=== PATIENT | female | born 1950 | race Caucasian/White ===

== ENCOUNTER → 2017-08-25 | Outpatient (CLI) | payer MEDICARE, BC ==
[2012-08-11 20:00] VITALS: BP 112/58
[~2017-08-25] MED LIST: NO HOME MEDICATIONS
== END ==
LOC: RAD 10:36
DX: Z12.31 Encounter for screening mammogram for malignant neoplasm of breast (principal)

== ENCOUNTER → 2017-08-28 | Outpatient (CLI) | payer MEDICARE, BC ==
[2012-08-11 20:00] VITALS: BP 112/58
[2017-08-28 08:08] LABS: HEMATOCRIT 38.5 % (37.0-47.0); HEMOGLOBIN 12.7 g/dL (12.5-16.0); MEAN CELL VOLUME 95 fl (78-100); MEAN CORPUSCULAR HEMOGLOBIN 31 pg (27-31); MEAN CORPUSCULAR HGB CONC 33 g/dL (33-37); MEAN PLATELET VOLUME 8.7 fl (7.4-10.4); PLATELET COUNT 281 K/mm3 (130-400); RED BLOOD COUNT 4.07 M/mm3 (4.10-5.30); RED CELL DISTRIBUTION WIDTH 12.7 % (11.5-14.5); WHITE BLOOD COUNT 3.5 K/mm3 (4.8-10.8)
[2017-08-28 08:15] LABS: ALBUMIN 3.9 g/dL (3.5-5.0); BUN/CREATININE RATIO 20.9 (6.0-26.0); CALCIUM 9.5 mg/dL (8.4-10.2); POTASSIUM 4.1 mmol/L (3.6-5.0); TOTAL BILIRUBIN 0.4 mg/dL (0.2-1.3); TOTAL PROTEIN 7.4 g/dL (6.3-8.2)
[2017-08-28 08:28] LABS: LYMPHOCYTE 33 % (20-51); NEUTROPHILS 51 % (42-75)
[2017-08-28 08:29] LABS: MONOCYTE 14 % (3-10)
[2017-08-28 08:52] LABS: URINE APPEARANCE HAZY; URINE BILIRUBIN NEGATIVE (NEGATIVE); URINE BLOOD 50 ery/uL (NEGATIVE); URINE COLOR YELLOW; URINE GLUCOSE NEGATIVE (NEGATIVE); URINE KETONE NEGATIVE (NEGATIVE); URINE LEUKOCYTE ESTERASE NEGATIVE (NEGATIVE); URINE NITRATE NEGATIVE (NEGATIVE); URINE PROTEIN(semi-quant) NEGATIVE (NEGATIVE); URINE UROBILINOGEN NORMAL (NORMAL)
[2017-08-28 08:53] LABS: URINE MUCUS PRESENT (NOT PRESENT)
== END ==
LOC: LAB 07:48
PROVIDERS: Internal Medicine
DX: E03.9 Hypothyroidism, unspecified (principal); E78.1 Pure hyperglyceridemia; N30.01 Acute cystitis with hematuria

== ENCOUNTER → 2018-09-29 | Outpatient (CLI) | payer MEDICARE, BC ==
[2012-08-11 20:00] VITALS: BP 112/58
== END ==
LOC: MAMMO 09-28 11:30
DX: Z12.31 Encounter for screening mammogram for malignant neoplasm of breast (principal)

== ENCOUNTER → 2019-11-08 | Outpatient (CLI) | payer MEDICARE, BC ==
[2012-08-11 20:00] VITALS: BP 112/58
== END ==
LOC: MAMMO 11:19
DX: Z12.31 Encounter for screening mammogram for malignant neoplasm of breast (principal)

== ENCOUNTER → 2019-11-08 | Outpatient (CLI) | payer MEDICARE, BC ==
[2012-08-11 20:00] VITALS: BP 112/58
== END ==
LOC: LAB 11:04
DX: C90.01 Multiple myeloma in remission (principal)

== ENCOUNTER → 2019-11-24 | Outpatient (CLI) | payer MEDICARE, BC ==
[2012-08-11 20:00] VITALS: BP 112/58
[2019-11-24 07:48] LABS: EOS # 0.1 (0.04-0.40); EOS % 2.6 % (1.0-5.0); HEMATOCRIT 39.6 % (37.0-47.0); HEMOGLOBIN 12.9 g/dL (12.5-16.0); LYMPH# 1.1 (1.50-4.00); MEAN CELL VOLUME 94 fl (78-100); MEAN CORPUSCULAR HEMOGLOBIN 31 pg (27-31); MEAN CORPUSCULAR HGB CONC 33 g/dL (33-37); MEAN PLATELET VOLUME 8.7 fl (7.4-10.4); MONO # 0.5 (0.20-0.80); NEU # 2.5 (1.40-6.50); PLATELET COUNT 294 K/mm3 (130-400); WHITE BLOOD COUNT 4.2 K/mm3 (4.8-10.8)
[2019-11-24 07:51] LABS: ALBUMIN 3.8 g/dL (3.4-4.8); POTASSIUM 3.7 mmol/L (3.5-5.1)
[2019-11-24 07:55] LABS: TOTAL BILIRUBIN 0.3 mg/dL (0.2-1.2)
[2019-11-24 08:25] LABS: URINE APPEARANCE CLEAR; URINE BILIRUBIN NEGATIVE (NEGATIVE); URINE BLOOD 50 ery/uL (NEGATIVE); URINE COLOR YELLOW; URINE GLUCOSE NEGATIVE (NEGATIVE); URINE KETONE NEGATIVE (NEGATIVE); URINE NITRATE NEGATIVE (NEGATIVE); URINE PROTEIN(semi-quant) NEGATIVE (NEGATIVE); URINE UROBILINOGEN NORMAL (NORMAL)
[2019-11-24 08:26] LABS: URINE LEUKOCYTE ESTERASE TRACE (NEGATIVE)
== END ==
LOC: LAB 07:27
PROVIDERS: Internal Medicine
DX: E78.1 Pure hyperglyceridemia (principal); E78.5 Hyperlipidemia, unspecified; E03.9 Hypothyroidism, unspecified; D72.819 Decreased white blood cell count, unspecified

== ENCOUNTER → 2020-11-21 | Outpatient (CLI) | payer MEDICARE, BC ==
[2012-08-11 20:00] VITALS: BP 112/58
== END ==
LOC: LAB 12:57
DX: C90.02 Multiple myeloma in relapse (principal); C90.01 Multiple myeloma in remission

== ENCOUNTER → 2020-11-21 | Outpatient (CLI) | payer MEDICARE, BC ==
[2012-08-11 20:00] VITALS: BP 112/58
== END ==
LOC: MAMMO 12:56
DX: Z12.31 Encounter for screening mammogram for malignant neoplasm of breast (principal); Z98.82 Breast implant status

== ENCOUNTER → 2020-11-27 | Outpatient (CLI) | payer MEDICARE, BC ==
[2012-08-11 20:00] VITALS: BP 112/58
[2020-11-27 07:33] LABS: BASO # 0.05 (0.02-0.10); EOS # 0.16 (0.04-0.40); EOS % 4.1 % (1.0-5.0); HEMATOCRIT 38.6 % (37.0-47.0); LYMPH# 0.91 (1.50-4.00); MEAN CELL VOLUME 95 fl (78-100); MEAN CORPUSCULAR HEMOGLOBIN 32 pg (27-31); MEAN CORPUSCULAR HGB CONC 34 g/dL (33-37); MEAN PLATELET VOLUME 9.1 fl (7.4-10.4); MONO # 0.49 (0.20-0.80); NEU # 2.33 (1.40-6.50); PLATELET COUNT 296 K/mm3 (130-400); RED BLOOD COUNT 4.07 M/mm3 (4.10-5.30); RED CELL DISTRIBUTION WIDTH 12.3 % (11.5-14.5); WHITE BLOOD COUNT 3.9 K/mm3 (4.8-10.8)
[2020-11-27 07:38] LABS: ALBUMIN 3.9 g/dL (3.4-4.8); POTASSIUM 4.1 mmol/L (3.5-5.1)
[2020-11-27 07:39] LABS: CALCIUM 9.3 mg/dL (8.3-10.5)
[2020-11-27 07:41] LABS: TOTAL PROTEIN 7.2 g/dL (6.2-8.1)
[2020-11-27 07:43] LABS: TOTAL BILIRUBIN 0.3 mg/dL (0.2-1.2)
[2020-11-29 07:42] LABS: URINE APPEARANCE CLEAR; URINE BILIRUBIN NEGATIVE (NEGATIVE); URINE BLOOD 250 ery/uL (NEGATIVE); URINE COLOR YELLOW; URINE GLUCOSE NEGATIVE (NEGATIVE); URINE KETONE NEGATIVE (NEGATIVE); URINE LEUKOCYTE ESTERASE NEGATIVE (NEGATIVE); URINE MUCUS PRESENT (NOT PRESENT); URINE NITRATE NEGATIVE (NEGATIVE); URINE PROTEIN(semi-quant) NEGATIVE (NEGATIVE); URINE UROBILINOGEN NORMAL (NORMAL)
== END ==
LOC: LAB 07:04
PROVIDERS: Internal Medicine
DX: E03.9 Hypothyroidism, unspecified (principal); E78.1 Pure hyperglyceridemia

== ENCOUNTER → 2022-02-12 | Outpatient (CLI) | payer MEDICARE, BC ==
[2022-02-12 07:52] LABS: ALBUMIN 3.7 g/dL (3.4-4.8)
[2022-02-12 07:53] LABS: CALCIUM 9.2 mg/dL (8.3-10.5)
[2022-02-12 07:55] LABS: TOTAL PROTEIN 5.9 g/dL (6.2-8.1)
[2022-02-12 07:56] LABS: TOTAL BILIRUBIN 0.4 mg/dL (0.2-1.2)
[2022-02-12 08:04] LABS: BASO # 0.08 K/mm3 (0.02-0.10); EOS # 0.25 K/mm3 (0.04-0.40); HEMATOCRIT 36.9 % (37.0-47.0); HEMOGLOBIN 11.8 g/dL (12.5-16.0); LYMPH# 0.64 K/mm3 (1.50-4.00); MEAN CELL VOLUME 97 fl (78-100); MEAN CORPUSCULAR HEMOGLOBIN 31 pg (27-31); MEAN CORPUSCULAR HGB CONC 32 g/dL (33-37); MEAN PLATELET VOLUME 9.4 fl (7.4-10.4); MONO # 0.54 K/mm3 (0.20-0.80); NEU # 2.01 K/mm3 (1.40-6.50); PLATELET COUNT 256 K/mm3 (130-400); RED BLOOD COUNT 3.81 M/mm3 (4.10-5.30); RED CELL DISTRIBUTION WIDTH 15.3 % (11.5-14.5); WHITE BLOOD COUNT 3.6 K/mm3 (4.8-10.8)
[2022-02-12 08:42] LABS: URINE APPEARANCE CLEAR; URINE BILIRUBIN NEGATIVE (NEGATIVE); URINE BLOOD TRACE (NEGATIVE); URINE COLOR YELLOW; URINE GLUCOSE NEGATIVE (NEGATIVE); URINE KETONE NEGATIVE (NEGATIVE); URINE LEUKOCYTE ESTERASE NEGATIVE (NEGATIVE); URINE NITRATE NEGATIVE (NEGATIVE); URINE PROTEIN(semi-quant) NEGATIVE (NEGATIVE); URINE UROBILINOGEN NORMAL (NORMAL)
== END ==
LOC: LAB 07:20
PROVIDERS: Internal Medicine
DX: E03.9 Hypothyroidism, unspecified (principal); E78.1 Pure hyperglyceridemia; E78.5 Hyperlipidemia, unspecified

== ENCOUNTER → 2023-08-20 | Outpatient (CLI) | payer MEDICARE, BC | LOC: LAB 07:07 | DX: E78.1 Pure hyperglyceridemia (principal) ==

== ENCOUNTER 2023-10-08 21:57 | Emergency (ER) | payer MEDICARE, BC ==
[~2023-10-08] VITALS: Ht 165.1 cm; Wt 69.1 kg
[2023-10-08] MEDS ORDERED: Ondansetron 4 MG/2 ML VIAL IV ONE ×2 (22:00→23:15)
[2023-10-08] MEDS ORDERED: NS 1,000 ML IV SCH (22:00)
[2023-10-08 22:26] LABS: HEMATOCRIT 34.8 % (37.0-47.0); HEMOGLOBIN 11.5 g/dL (12.5-16.0); MEAN CELL VOLUME 96 fl (78-100); MEAN CORPUSCULAR HEMOGLOBIN 32 pg (27-31); MEAN CORPUSCULAR HGB CONC 33 g/dL (33-37); PLATELET COUNT 181 K/mm3 (130-400); RED BLOOD COUNT 3.61 M/mm3 (4.10-5.30); RED CELL DISTRIBUTION WIDTH 14.6 % (11.5-14.5)
[2023-10-08 22:34] LABS: ALBUMIN 3.4 g/dL (3.4-4.8)
[2023-10-08 22:36] LABS: CALCIUM 7.8 mg/dL (8.3-10.5)
[2023-10-08 22:39] LABS: TOTAL BILIRUBIN 0.5 mg/dL (0.2-1.2)
[2023-10-08 22:53] LABS: BAND 4 % (0-10); LYMPHOCYTE 4 % (20-51); MONOCYTE 42 % (3-10); NEUTROPHILS 36 % (42-75); OVALOCYTES 1+
[2023-10-08] MEDS ORDERED: Potassium Chloride 100 ML IV SCH (23:00)
[2023-10-08] MEDS ORDERED: Loperamide 2 MG CAP PO ONE (23:15)
[2023-10-09] MEDS ORDERED: ZOVIRAX400 MG PO (00:28)
[2023-10-09] MEDS ORDERED: ATIVAN1 M1 PO (00:28)
[2023-10-09] MEDS ORDERED: BENADRYL PO (00:29)
[2023-10-09] MEDS ORDERED: LEVOTHYROXIN0.075 MG PO (00:31)
[2023-10-09] MEDS ORDERED: LEXAPRO20 M1 PO (00:34)
[2023-10-09] MEDS ORDERED: LEXAPRO 10MG10 MG PO (00:35)
[2023-10-09] MEDS ORDERED: GOOD NEIGHBOR L10 MG PO (00:36)
[2023-10-09] MEDS ORDERED: EYE ALLERGY ITCH5 ML OP (00:38)
[2023-10-09] MEDS ORDERED: TRICOR145 M1 PO (00:40)
[2023-10-09] MEDS ORDERED: CALCIUM LACTAT100 M1 PO (00:40)
[2023-10-09] MEDS ORDERED: VITAMIN D3125 MC1 PO (00:41)
[2023-10-09] MEDS ORDERED: CANDICIDAL CAP1 EACH PO (00:42)
[2023-10-09] MEDS ORDERED: TIMOPTIC OCUDOSE0.5% OP (00:52)
[2023-10-09 07:06] LABS: CALCIUM 7.3 mg/dL (8.3-10.5)
[2023-10-09] MEDS ORDERED: ZOFRAN ODT4 MG PO (07:43)
[2023-10-09 08:09] VITALS: BP 97/53
[2023-10-09] MEDS ORDERED: NS 1,000 ML IV SCH (23:45)
[2023-10-10] MEDS ORDERED: LOMOTIL1 TAB PO (11:15)
== END 2023-10-09 07:53 | disposition home or self-care (01) ==
LOC: ED 21:57
PROVIDERS: Nurse Practitioner
DX: R19.7 Diarrhea, unspecified (principal); R11.2 Nausea with vomiting, unspecified; T45.1X5A Adverse effect of antineoplastic and immunosuppressive drugs, initial encounter; E87.6 Hypokalemia; C90.00 Multiple myeloma not having achieved remission
CPT/HCPCS: J2405; J3480; J7030

== ENCOUNTER 2023-10-10 08:57 | Emergency (ER) | payer MEDICARE, BC ==
[~2023-10-10] VITALS: Ht 165.1 cm; Wt 68.6 kg
[~2023-10-10 08:57] MED LIST changes: +ATIVAN1 M1 PO; +BENADRYL PO; +CALCIUM LACTAT100 M1 PO; +CANDICIDAL CAP1 EACH PO; +EYE ALLERGY ITCH5 ML OP; +GOOD NEIGHBOR L10 MG PO; +LEVOTHYROXIN0.075 MG PO; +LEXAPRO 10MG10 MG PO; +LEXAPRO20 M1 PO; +TIMOPTIC OCUDOSE0.5% OP; +TRICOR145 M1 PO; +VITAMIN D3125 MC1 PO; +ZOFRAN ODT4 MG PO; +ZOVIRAX400 MG PO
[2023-10-10 10:02] LABS: HEMATOCRIT 33.9 % (37.0-47.0); HEMOGLOBIN 11.3 g/dL (12.5-16.0); MEAN CELL VOLUME 97 fl (78-100); MEAN CORPUSCULAR HEMOGLOBIN 32 pg (27-31); MEAN CORPUSCULAR HGB CONC 33 g/dL (33-37); MEAN PLATELET VOLUME 9.9 fl (7.4-10.4); PLATELET COUNT 154 K/mm3 (130-400); RED BLOOD COUNT 3.49 M/mm3 (4.10-5.30); RED CELL DISTRIBUTION WIDTH 14.4 % (11.5-14.5)
[2023-10-10 10:12] LABS: WHITE BLOOD COUNT 1.2 K/mm3 (4.8-10.8)
[2023-10-10 10:15] LABS: CALCIUM 7.2 mg/dL (8.3-10.5)
[2023-10-10] MEDS ORDERED: Potassium Bicarbonate/Citrate 20 MEQ Effervescent TAB PO ONE (10:30)
[2023-10-10] MEDS ORDERED: Diphenoxylate/Atropine 2.5-0.025 MG TAB PO ONE (10:30)
[2023-10-10 10:33] LABS: BAND 49 % (0-10); LYMPHOCYTE 16 % (20-51); MONOCYTE 15 % (3-10); NEUTROPHILS 20 % (42-75)
[2023-10-10] MEDS ORDERED: LOMOTIL1 TAB PO (11:15)
[2023-10-10 11:36] VITALS: BP 109/39
== END 2023-10-10 11:30 | disposition home or self-care (01) ==
LOC: ED 08:57
PROVIDERS: Family Medicine
DX: R19.7 Diarrhea, unspecified (principal)

== ENCOUNTER → 2024-03-10 | Outpatient (CLI) | payer MEDICARE, BC ==
[~2024-03-10] MED LIST changes: +LOMOTIL1 TAB PO
[2024-03-10 14:09] LABS: HEMATOCRIT 32.7 % (37.0-47.0); HEMOGLOBIN 10.7 g/dL (12.5-16.0); MEAN CELL VOLUME 101 fl (78-100); MEAN CORPUSCULAR HEMOGLOBIN 33 pg (27-31); MEAN CORPUSCULAR HGB CONC 33 g/dL (33-37); MEAN PLATELET VOLUME 12.6 fl (7.4-10.4); PLATELET COUNT 111 K/mm3 (130-400); RED BLOOD COUNT 3.24 M/mm3 (4.10-5.30); RED CELL DISTRIBUTION WIDTH 18.5 % (11.5-14.5); WHITE BLOOD COUNT 3.9 K/mm3 (4.8-10.8)
[2024-03-10 15:05] LABS: LYMPHOCYTE 11 % (20-51); MONOCYTE 14 % (3-10); NEUTROPHILS 74 % (42-75)
[2024-03-10 15:08] LABS: HYPOCHROMIA 1+
== END ==
LOC: LAB 13:49
PROVIDERS: Internal Medicine Hematology & Oncology
DX: C90.02 Multiple myeloma in relapse (principal)

== ENCOUNTER → 2024-03-15 | Outpatient (CLI) | payer MEDICARE, BC ==
[2024-03-15 13:32] LABS: HEMATOCRIT 32.4 % (37.0-47.0); HEMOGLOBIN 10.4 g/dL (12.5-16.0); MEAN CELL VOLUME 105 fl (78-100); MEAN CORPUSCULAR HEMOGLOBIN 34 pg (27-31); MEAN CORPUSCULAR HGB CONC 32 g/dL (33-37); MEAN PLATELET VOLUME 11.9 fl (7.4-10.4); PLATELET COUNT 116 K/mm3 (130-400); RED CELL DISTRIBUTION WIDTH 18.8 % (11.5-14.5); WHITE BLOOD COUNT 2.9 K/mm3 (4.8-10.8)
[2024-03-15 14:17] LABS: LYMPHOCYTE 14 % (20-51); MONOCYTE 18 % (3-10); NEUTROPHILS 66 % (42-75)
== END ==
LOC: LAB 13:11
PROVIDERS: Internal Medicine Hematology & Oncology
DX: C90.02 Multiple myeloma in relapse (principal)

== ENCOUNTER → 2024-03-28 | Outpatient (CLI) | payer MEDICARE, BC ==
[2024-03-28 14:40] LABS: HEMATOCRIT 28.5 % (37.0-47.0); HEMOGLOBIN 9.3 g/dL (12.5-16.0); MEAN CELL VOLUME 106 fl (78-100); MEAN CORPUSCULAR HEMOGLOBIN 35 pg (27-31); MEAN CORPUSCULAR HGB CONC 33 g/dL (33-37); MEAN PLATELET VOLUME 10.7 fl (7.4-10.4); PLATELET COUNT 136 K/mm3 (130-400); RED BLOOD COUNT 2.69 M/mm3 (4.10-5.30); RED CELL DISTRIBUTION WIDTH 17.3 % (11.5-14.5); WHITE BLOOD COUNT 2.8 K/mm3 (4.8-10.8)
[2024-03-28 15:11] LABS: BAND 5 % (0-10); LYMPHOCYTE 6 % (20-51); NEUTROPHILS 71 % (42-75)
[2024-03-28 15:12] LABS: MONOCYTE 17 % (3-10)
== END ==
LOC: LAB 14:21
PROVIDERS: Internal Medicine Hematology & Oncology
DX: C90.02 Multiple myeloma in relapse (principal)

== ENCOUNTER → 2024-04-04 | Outpatient (CLI) | payer MEDICARE, BC ==
[2024-04-04 15:42] LABS: HEMATOCRIT 31.8 % (37.0-47.0); HEMOGLOBIN 10.5 g/dL (12.5-16.0); MEAN CELL VOLUME 106 fl (78-100); MEAN CORPUSCULAR HEMOGLOBIN 35 pg (27-31); MEAN CORPUSCULAR HGB CONC 33 g/dL (33-37); MEAN PLATELET VOLUME 12.3 fl (7.4-10.4); PLATELET COUNT 138 K/mm3 (130-400); RED BLOOD COUNT 3.01 M/mm3 (4.10-5.30); RED CELL DISTRIBUTION WIDTH 15.9 % (11.5-14.5); WHITE BLOOD COUNT 2.3 K/mm3 (4.8-10.8)
[2024-04-04 16:27] LABS: LYMPHOCYTE 22 % (20-51); MONOCYTE 16 % (3-10); NEUTROPHILS 61 % (42-75)
== END ==
LOC: LAB 15:10
PROVIDERS: Internal Medicine Hematology & Oncology
DX: C90.02 Multiple myeloma in relapse (principal); E55.9 Vitamin D deficiency, unspecified; E03.9 Hypothyroidism, unspecified

== ENCOUNTER → 2024-05-18 | Outpatient (CLI) | payer MEDICARE, BC ==
[2024-05-18 11:29] LABS: CALCIUM 9.4 mg/dL (8.3-10.5)
== END ==
LOC: LAB 10:47
PROVIDERS: Internal Medicine
DX: I11.0 Hypertensive heart disease with heart failure (principal); I50.20 Unspecified systolic (congestive) heart failure

== ENCOUNTER → 2024-05-31 | Outpatient (CLI) | payer MEDICARE, BC | LOC: LAB 14:24 | DX: C90.00 Multiple myeloma not having achieved remission (principal) ==

== ENCOUNTER → 2024-06-15 | Outpatient (CLI) | payer MEDICARE, BC ==
[2024-06-15 14:16] LABS: CALCIUM 9.7 mg/dL (8.3-10.5)
== END ==
LOC: LAB 13:56
PROVIDERS: Internal Medicine
DX: I11.0 Hypertensive heart disease with heart failure (principal); I50.20 Unspecified systolic (congestive) heart failure; I25.10 Atherosclerotic heart disease of native coronary artery without angina pectoris

== ENCOUNTER → 2024-07-06 | Outpatient (CLI) | payer MEDICARE, BC | LOC: LAB 14:01 | DX: C90.00 Multiple myeloma not having achieved remission (principal) ==

== ENCOUNTER → 2024-08-08 | Outpatient (CLI) | payer MEDICARE, BC | LOC: LAB 15:17 | DX: C90.00 Multiple myeloma not having achieved remission (principal) ==

== ENCOUNTER → 2024-10-12 | Outpatient (CLI) | payer MEDICARE, BC | LOC: LAB 14:07 | DX: C90.00 Multiple myeloma not having achieved remission (principal) ==